=== PATIENT | female | born 1995 ===

== ENCOUNTER 2019-04-07 12:33 | Emergency (ER) | payer BC ==
--- NOTE | 2019-04-07 12:45 | EDM.PDOC ---
ED HPI GENERAL MEDICAL PROBLEM - General Chief Complaint: General Stated Complaint: NEEDS MEDICATIONS Time Seen by Provider: 04/07/19 12:37 Source of Information: Reports: Patient, Family History Limitations: Reports: No Limitations - History of Present Illness INITIAL COMMENTS - FREE TEXT/NARRATIVE: The patient presents because she is out of some medication. She is type I diabetic. She is not out of her insulin but she is out of her metoprolol, lisinopril and paroxitine. She has no other issues. Onset: Gradual Duration: Day(s): (3) Improves with: Reports: None Worsens with: Reports: None Associated Symptoms: Reports: No Other Symptoms - Related Data Allergies Allergy/AdvReac Type Severity Reaction Status Date / Time amoxicillin Allergy Rash Verified 04/07/19 12:45 Home Meds: Home Meds Insulin Degludec [Tresiba] 19 unit INJECT BEDTIME 04/07/19 [History] Insulin NPH/Insulin Reg,Human [Novolin 70-30] 0 units INJECT ASDIRECTED [History] Levothyroxine 75 mcg PO DAILY 04/07/19 [History] Lisinopril [Zestril] 2.5 mg PO DAILY 04/07/19 [History] Lisinopril [Zestril] 2.5 mg PO DAILY #30 tablet 04/07/19 [Rx] Metoprolol Tartrate 25 mg PO BID 04/07/19 [History] Metoprolol Tartrate 25 mg PO BID #60 tablet 04/07/19 [Rx] PARoxetine HCl [Paroxetine HCl] 20 mg PO DAILY 04/07/19 [History] PARoxetine [Paxil] 20 mg PO DAILY #30 tab 04/07/19 [Rx] ED ROS GENERAL - Review of Systems Review Of Systems: See Below Constitutional: Reports: No Symptoms HEENT: Reports: No Symptoms Respiratory: Reports: No Symptoms Cardiovascular: Reports: No Symptoms Endocrine: Reports: No Symptoms GI/Abdominal: Reports: No Symptoms : Reports: No Symptoms Musculoskeletal: Reports: No Symptoms ED EXAM, GENERAL - Physical Exam Exam: See Below Exam Limited By: No Limitations General Appearance: Alert, No Apparent Distress Ears: Normal External Exam Nose: Normal Inspection Head: Atraumatic, Normocephalic Neck: Normal Inspection Respiratory/Chest: No Respiratory Distress, Lungs Clear, Normal Breath Sounds Cardiovascular: Regular Rate, Rhythm, No Edema, No Murmur GI/Abdominal: Soft, Non-Tender, No Organomegaly, No Mass Extremities: Normal Inspection Neurological: Alert, Oriented, No Motor/Sensory Deficits Course - Vital Signs Last Recorded V/S: Last Vital Signs Temp 99.0 F 04/07/19 12:42 Pulse 67 04/07/19 12:42 Resp 20 04/07/19 12:42 BP 116/83 04/07/19 12:42 Pulse Ox 100 04/07/19 12:42 Departure - Departure Time of Disposition: 12:55 Disposition: Home, Self-Care 01 Condition: Good Clinical Impression: Medication refill Type I diabetes mellitus Qualifiers: Diabetes mellitus complication status: without complication Qualified Code(s): E10.9 - Type 1 diabetes mellitus without complications Hypertension Qualifiers: Hypertension type: unspecified Qualified Code(s): I10 - Essential (primary) hypertension - Discharge Information *PRESCRIPTION DRUG MONITORING PROGRAM REVIEWED*: Not Applicable *COPY OF PRESCRIPTION DRUG MONITORING REPORT IN PATIENT NICHOLAS: Not Applicable Prescriptions: Lisinopril [Zestril] 2.5 mg PO DAILY #30 tablet Metoprolol Tartrate 25 mg PO BID #60 tablet PARoxetine [Paxil] 20 mg PO DAILY #30 tab Referrals: PCP,Not In Area [Primary Care Provider] - Facundo Darnell MD [Physician] - 1 Week Forms: ED Department Discharge Additional Instructions: Take your medication as prescribed. Follow up with Dr Darnell in our clinic. Please return if you are worse. Sepsis Event Note - Evaluation Sepsis Screening Result: No Definite Risk - Focused Exam Vital Signs: Vital Signs Temp Pulse Resp BP Pulse Ox 04/07/19 12:42 99.0 F 67 20 116/83 100 Date Exam was Performed: 04/07/19 Time Exam was Performed: 12:51
== END 2019-04-07 13:15 | disposition home or self-care (01) ==
LOC: JD.ED 12:33
DX: E10.9 Type 1 diabetes mellitus without complications (principal); I10 Essential (primary) hypertension; Z76.0 Encounter for issue of repeat prescription; Z88.1 Allergy status to other antibiotic agents; Z79.899 Other long term (current) drug therapy
CPT/HCPCS: 99281; 99283